=== PATIENT | male | born 1950 | race Caucasian/White ===

== ENCOUNTER → 2017-08-28 | Outpatient (CLI) | payer MEDICARE ==
--- NOTE | 2017-08-30 09:25 | RSPPFT ---
DATE OF PROCEDURE: 08/28/17 COMMENTS: Spirometry with FVC of 3.5, FEV1 of 2.2 and FEV1/FVC ratio at 63%. Slow vital capacity is 98% of predicted. Diffusion capacity is 86%. Post-bronchodilator study shows a non-significant response. IMPRESSION: 1. Moderate airways obstruction. 2. Non-significant response to inhaled bronchodilator. 3. Normal diffusion capacity. 4. No evidence of airways restriction.
== END ==
LOC: PHRSP 09:17
PROVIDERS: ATTEND Internal Medicine Sleep Medicine
DX: R06.89 Other abnormalities of breathing (principal)
CPT/HCPCS: 94060; 94726; 94729